=== PATIENT | female | born 1995 | race Asian ===

== ENCOUNTER 2022-06-19 19:31 | Emergency (ER) | payer OTHER ==
--- NOTE | 2022-06-19 19:57 | ED Psychosocial ---
General Chief Complaint: Psych/Social Disorder Stated Complaint: SUCIDAL IDEATION Nursing Triage Note: Pt states she feels sad and thinks she needs to be on an antidepressant. Pt states she cries a lot and felt suicidal a few days ago but denies suicidal thoughts tonight. Source: patient, family History of Present Illness Date Seen by Provider: Jun 19, 2022 Time Seen by Provider: 19:33 Initial Comments 26-year-old female presenting with complaints of feeling sad and crying a lot. She has been having some suicidal thoughts and had a plan of trying to use a knife to cut herself and . She has had a prior suicide attempt about 4 years ago when she had a miscarriage. She has an appointment in about a month to see mental health but since she was getting worse over the weekend they came to be seen today. The was in the room and the patient states that she feels like she is not loved her appreciated and no one would care if she was not better. She feels at times she needs to disappear. The states that he loves her and is trying to help her but the patient says that he does not care and she becomes tearful. She denies taking any medicines or do anything to harm her self today. Timing/Duration: getting worse Severity: severe Associated Symptoms: impaired concentration, suicidal ideation Allergies and Home Medications Allergies Coded Allergies: No Known Drug Allergies (Unverified , 06/19/22) Patient Home Medication List Home Medication List Reviewed: Yes Sulfamethoxazole/Trimethoprim (Bactrim Ds Tablet) 1 Each Tablet, 1 EACH PO BID Prescribed by: MARCO A BENJAMIN on 06/19/22 8220 Review of Systems Constitutional: No chills, No fever EENTM: no symptoms reported Respiratory: no symptoms reported Cardiovascular: no symptoms reported Gastrointestinal: no symptoms reported Genitourinary: no symptoms reported Musculoskeletal: no symptoms reported Skin: no symptoms reported Psychiatric/Neurological: Anxiety, Depressed, Emotional Problems Past Vvhdrui-Fqzwdu-Lsksyr Hx Patient Social History Tobacco Use?: No Use of E-Cig and/or Vaping dev: No Substance use?: No Alcohol Use?: No Past Medical History Surgery/Hospitalization HX: Suicide attempt in 2018 after miscarriage, depression and anxiety Physical Exam Vital Signs - First Documented 06/19/22 19:36 Temp 36.6 Pulse 93 Resp 18 B/P (MAP) 135/85 (102) Pulse Ox 99 O2 Delivery Room Air Capillary Refill : Less Than 3 Seconds Height, Weight, BMI Height: '" Weight: lbs. oz. kg; BMI Method: General Appearance: WD/WN, other (Tearful and crying at times) HEENT: PERRL/EOMI, normal ENT inspection, pharynx normal Neck: non-tender, full range of motion, supple, normal inspection Respiratory: chest non-tender, lungs clear, normal breath sounds, no respiratory distress, no accessory muscle use Cardiovascular: normal peripheral pulses, regular rate, rhythm Gastrointestinal: normal bowel sounds, non tender, soft, no pulsatile mass Extremities: normal range of motion, non-tender, normal capillary refill Neurologic/Psychiatric: schedule maker II-XII nml as tested, no motor/sensory deficits, alert, oriented x 3, depressed affect Appearance/Memory: appropriate appearance, appropriate insight, neat Behavior/Eye Contact: cooperative, good eye contact Skin: normal color, warm/dry Progress/Results/Core Measures Results/Orders Lab Results Laboratory Tests Test 06/19/22 19:48 06/19/22 19:57 Range/Units Urine Color YELLOW Urine Clarity SL CLOUDY Urine pH 6.5 5-9 Urine Specific [place] 1.025 H 1.016-1.022 Urine Protein NEGATIVE NEGATIVE Urine Glucose (UA) NEGATIVE NEGATIVE Urine Ketones NEGATIVE NEGATIVE Urine Nitrite NEGATIVE NEGATIVE Urine Bilirubin NEGATIVE NEGATIVE Urine Urobilinogen 0.2 < = 1.0 MG/DL Urine Leukocyte Esterase 2+ H NEGATIVE Urine RBC (Auto) 2+ H NEGATIVE Urine RBC 0-2 /HPF Urine WBC 10-25 H /HPF Urine Squamous Epithelial Cells 2-5 /HPF Urine Crystals NONE /LPF Urine Bacteria FEW H /HPF Urine Casts NONE /LPF Urine Mucus NEGATIVE /LPF Urine Culture Indicated YES Urine Test NEGATIVE NEGATIVE Urine Opiates Screen NEGATIVE NEGATIVE Urine Oxycodone Screen NEGATIVE NEGATIVE Urine Methadone Screen NEGATIVE NEGATIVE Urine Propoxyphene Screen NEGATIVE NEGATIVE Urine Barbiturates Screen NEGATIVE NEGATIVE Ur Tricyclic Antidepressants Screen NEGATIVE NEGATIVE Urine Phencyclidine Screen NEGATIVE NEGATIVE Urine Amphetamines Screen NEGATIVE NEGATIVE Urine Methamphetamines Screen NEGATIVE NEGATIVE Urine Benzodiazepines Screen NEGATIVE NEGATIVE Urine Cocaine Screen NEGATIVE NEGATIVE Urine Cannabinoids Screen NEGATIVE NEGATIVE White Blood Count 6.6 4.3-11.0 10^3/uL Red Blood Count 4.58 3.80-5.11 10^6/uL Hemoglobin 14.2 11.5-16.0 g/dL Hematocrit 41 35-52 % Mean Corpuscular Volume 90 80-99 fL Mean Corpuscular Hemoglobin 31 25-34 pg Mean Corpuscular Hemoglobin Concent 34 32-36 g/dL Red Cell Distribution Width 11.9 10.0-14.5 % Platelet Count 324 130-400 10^3/uL Mean Platelet Volume 10.6 9.0-12.2 fL Immature Granulocyte % (Auto) 0 % Neutrophils (%) (Auto) 69 42-75 % Lymphocytes (%) (Auto) 25 12-44 % Monocytes (%) (Auto) 5 0-12 % Eosinophils (%) (Auto) 1 0-10 % Basophils (%) (Auto) 1 0-10 % Neutrophils # (Auto) 4.5 1.8-7.8 10^3/uL Lymphocytes # (Auto) 1.7 1.0-4.0 10^3/uL Monocytes # (Auto) 0.3 0.0-1.0 10^3/uL Eosinophils # (Auto) 0.0 0.0-0.3 10^3/uL Basophils # (Auto) 0.1 0.0-0.1 10^3/uL Immature Granulocyte # (Auto) 0.0 0.0-0.1 10^3/uL Sodium Level 139 135-145 MMOL/L Potassium Level 3.9 3.6-5.0 MMOL/L Chloride Level 101 98-107 MMOL/L Carbon Dioxide Level 26 21-32 MMOL/L Anion Gap 12 5-14 MMOL/L Blood Urea Nitrogen 13 7-18 MG/DL Creatinine 0.56 L 0.60-1.30 MG/DL Estimat Glomerular Filtration Rate 130 BUN/Creatinine Ratio 23 Glucose Level 97 70-105 MG/DL Calcium Level 9.1 8.5-10.1 MG/DL Corrected Calcium 8.5-10.1 MG/DL Total Bilirubin 0.4 0.1-1.0 MG/DL Aspartate Amino Transf (AST/SGOT) 16 5-34 U/L Alanine Aminotransferase (ALT/SGPT) 28 0-55 U/L Alkaline Phosphatase 56 40-136 U/L Total Protein 8.0 6.4-8.2 GM/DL Albumin 4.8 H 3.2-4.5 GM/DL Salicylates Level < 0.3 L 5.0-20.0 MG/DL Acetaminophen Level < 10 L 10-30 UG/ML Serum Alcohol < 10 <10 MG/DL SARS-CoV-2 RNA (RT-PCR) Not Detected Not Detecte My Orders Orders - MARCO A BENJAMIN MD Ua Culture If Indicated (06/19/22 19:42) Cbc With Automated Diff (06/19/22 19:42) Comprehensive Metabolic Panel (06/19/22 19:42) Alcohol (06/19/22 19:42) Drug Screen Stat (Urine) (06/19/22 19:42) Acetaminophen (06/19/22 19:42) Salicylate (06/19/22 19:42) Ekg Tracing (06/19/22 19:42) Bh Status Checks/Observation O Q15M (06/19/22 19:42) Covid 19 Inhouse Test (06/19/22 19:42) Hcg,Qualitative Urine (06/19/22 20:19) Urine Culture (06/19/22 19:48) Sulfamethoxazole/Trimet Ds Tab (Bactrim (06/19/22 21:09) Vital Signs/I&O 06/19/22 06/20/22 19:36 00:19 Temp 36.6 36.6 Pulse 93 93 Resp 18 18 B/P (MAP) 135/85 (102) 135/85 Pulse Ox 99 99 O2 Delivery Room Air Room Air Blood Pressure Mean: 102 Progress Progress Note #1: Progress Note Obtain labs to medically screen the patient. Once she is medically clear and stable will contact [facility] to have a mental health screening. In the meantime her is in the room for constant one-to-one and she is on every 15 minute watch for suicide precautions Progress Note #2: Time: 20:44 Progress Note Labs are stable without acute significant normality on CBC or chemistry. Her alcohol, acetaminophen, salicylate and urine drug screen are all negative. She does have some leukocyte esterase and white blood cells with bacteria in her urine to indicate possible UTI. We will start her on antibiotic and she is medically clear and stable to speak with mental health. Progress Note #3: Time: 00:14 Progress Note After speaking with mental health she was cleared to go home with and a safety plan. Safety plan to be faxed by [facility]. Initial ECG Impression Date: Jun 19, 2022 Initial ECG Impression Time: 19:54 Initial ECG Rate: 76 Initial ECG Rhythm: Normal Sinus Initial ECG Comparisson: No Previous ECG Available Comment Normal sinus rhythm with a heart rate of 76 bpm. DC interval [address] elevation. No prior tracing for comparison. QT interval 373 ms with a QTC interval 404 ms. Departure Impression Primary Impression: Suicidal ideation Additional Impressions: Marital or partner relational problem Acute cystitis without hematuria Disposition: HOME, SELF-CARE Condition: Stable Departure-Patient Inst. Decision time for Depature: 00:17 Referrals: NO,LOCAL PHYSICIAN (PCP/Family) Primary Care Physician Patient Instructions: Urinary Tract Infection, Adult ED, Depression, Adult ED, Suicide Prevention, Tips on Positive Thinking Add. Discharge Instructions: Stay well hydrated and drink plenty of water and cranberry juice to help flush out urine infection. Follow safety plan as set up with [facility] Mental Health provider. Take full course of antibiotics to treat for urinary tract infection. All discharge instructions reviewed with patient and/or family. Voiced understanding. Scripts Sulfamethoxazole/Trimethoprim (Bactrim Ds Tablet) 1 Each Tablet 1 EACH PO BID for UTI for 5 Days, #10 TAB 0 Refills Prov: MARCO A BENJAMIN MD 06/19/22 MARCO A BENJAMIN MD Jun 19, 2022 19:57
[2022-06-19 20:08] LABS: BASOPHILS # (AUTO) 0.1 10^3/uL (0.0-0.1); BASOPHILS % (AUTO) 1 % (0-10); EOSINOPHILS % (AUTO) 1 % (0-10); HEMATOCRIT 41 % (35-52); HEMOGLOBIN 14.2 g/dL (11.5-16.0); LYMPHOCYTES # (AUTO) 1.7 10^3/uL (1.0-4.0); LYMPHOCYTES % (AUTO) 25 % (12-44); MEAN CORPUSCULAR HEMOGLOBIN 31 pg (25-34); MEAN CORPUSCULAR HGB CONC 34 g/dL (32-36); MEAN CORPUSCULAR VOLUME 90 fL (80-99); MEAN PLATELET VOLUME 10.6 fL (9.0-12.2); MONOCYTES # (AUTO) 0.3 10^3/uL (0.0-1.0); MONOCYTES % (AUTO) 5 % (0-12); NEUTROPHILS # (AUTO) 4.5 10^3/uL (1.8-7.8); NEUTROPHILS % (AUTO) 69 % (42-75); PLATELET COUNT 324 10^3/uL (130-400); WHITE BLOOD COUNT 6.6 10^3/uL (4.3-11.0)
[2022-06-19 20:13] LABS: BILIRUBIN,URINE NEGATIVE (NEGATIVE); CLARITY,URINE SL CLOUDY; COLOR,URINE YELLOW; GLUCOSE, URINE (UA) NEGATIVE (NEGATIVE); KETONES,URINE NEGATIVE (NEGATIVE); LEUKOCYTE ESTERASE ,URINE 2+ (NEGATIVE); NITRITE,URINE NEGATIVE (NEGATIVE); PH,URINE 6.5 (5-9); PROTEIN,URINE NEGATIVE (NEGATIVE)
[2022-06-19 20:24] LABS: AMPHETAMINE SCREEN, URINE NEGATIVE (NEGATIVE); BARBITURATE SCREEN URINE NEGATIVE (NEGATIVE); BENZODIAZEPINES SCREEN URINE NEGATIVE (NEGATIVE); CANNABINOID SCREEN, URINE NEGATIVE (NEGATIVE); COCAINE SCREEN URINE NEGATIVE (NEGATIVE); METHADONE STAT NEGATIVE (NEGATIVE); OPIATE SCREEN URINE NEGATIVE (NEGATIVE); OXYCODONE STAT NEGATIVE (NEGATIVE); PROPOXYPHENE STAT NEGATIVE (NEGATIVE); TRICYCLIC ANTIDEPRESSANTS SCRE NEGATIVE (NEGATIVE)
[2022-06-19 20:25] LABS: BACTERIA,URINE FEW /HPF; RBC,URINE 0-2 /HPF
[2022-06-19 20:33] LABS: CHLORIDE 101 MMOL/L (98-107); POTASSIUM 3.9 MMOL/L (3.6-5.0); SODIUM 139 MMOL/L (135-145)
[2022-06-19 20:34] LABS: ACETAMINOPHEN < 10 UG/ML (10-30); ALANINE AMINOTRANSFERASE 28 U/L (0-55); ALBUMIN 4.8 GM/DL (3.2-4.5); ALKALINE PHOSPHATASE 56 U/L (40-136); BILIRUBIN,TOTAL 0.4 MG/DL (0.1-1.0); BUN/CREATININE RATIO 23; CALCIUM 9.1 MG/DL (8.5-10.1); CARBON DIOXIDE 26 MMOL/L (21-32); CREATININE SERUM 0.56 MG/DL (0.60-1.30); GFR ESTIMATED 130; GLUCOSE 97 MG/DL (70-105); SALICYLATE < 0.3 MG/DL (5.0-20.0)
[2022-06-19] MEDS ORDERED: TRIM/SULFAMETH 160/800 (SEPTRA DS) TAB PO STA (21:09)
[2022-06-19] MEDS ORDERED: SULF1TAB38 PO (22:05)
[2022-06-20 00:19] VITALS: BP 135/85
== END 2022-06-20 01:15 | disposition home or self-care (01) ==
LOC: ER FS 19:33
DX: R45.851 Suicidal ideations (principal); N30.00 Acute cystitis without hematuria; Z63.0 Problems in relationship with spouse or partner; Z20.822 Contact with and (suspected) exposure to COVID-19; Z28.310 Unvaccinated for COVID-19
CPT/HCPCS: 36415; 80053; 80306; 80320; 80329; 81000; 84703; 85025; 87088; 87636; 93005

== ENCOUNTER 2022-08-25 05:32 | Outpatient (CLI) | payer OTHER ==
[~2022-08-25] VITALS: Ht 149.9 cm; Wt 60.0 kg
[~2022-08-25 05:32] MED LIST: SULF1TAB38 PO
[2022-08-25] MEDS ORDERED: SERT-413 PO (07:23)
== END 2022-08-25 07:26 ==
LOC: PREOP 05:32
PROVIDERS: ATTEND Surgery
DX: Z01.818 Encounter for other preprocedural examination (principal)

== ENCOUNTER 2022-08-28 10:06 | Day surgery (SDC) | payer OTHER ==
[~2022-08-28] VITALS: Ht 149.9 cm; Wt 60.0 kg
[~2022-08-28 10:06] MED LIST changes: +SERT-413 PO
[2022-08-28] MEDS ORDERED: LACTATED RINGERS 1,000 ML IV STA (10:14)
[2022-08-28] MEDS ORDERED: HURRICAINE EXT TUBE (BENZOCAINE) XX PRN (10:15)
[2022-08-28 10:25] VITALS: BP 114/69
[2022-08-28] MEDS ORDERED: LACTATED RINGERS 1,000 ML IV ONE (10:26)
[2022-08-28] MEDS ORDERED: HURRICAINE EXT TUBE (BENZOCAINE) ONE (10:27)
--- NOTE | 2022-08-28 10:42 | Progress Note-Pre Operative ---
Pre-Operative Progress Note Date of Available H&P: Aug 24, 2022 Date H&P Reviewed: Aug 28, 2022 Time H&P Reviewed: 10:41 History & Physical: H&P Reviewed, Patient Examed, No changes noted Pre-Operative Diagnosis: N/V, weight loss, GERD PARKER ISABEL DO Aug 28, 2022 10:42
[2022-08-28] MEDS ORDERED: MIDAZOLAM 2 MG/2 ML (VERSED) VIAL ONE (10:57)
[2022-08-28] MEDS ORDERED: proPOfol 200 MG/20 ML (DIPRIVAN) VIAL IV ONE (10:57)
[2022-08-28 11:20] VITALS: BP 121/59
--- NOTE | 2022-08-28 11:20 | Progress Note-Post Operative ---
Post-Operative Progess Note Surgeon (s)/Supervisor [place] (s) Surgeon PARKER ISABEL DO Supervisor [place]: none Pre-Operative Diagnosis N/V, weight loss, GERD Post-Operative Diagnosis Gastritis Hiatal hernia Esophagitis Procedure & Operative Findings Date of Procedure 08/28/22 Procedure Performed/Findings EGD with biopsy PROCEDURE NOTE: After informed consent was obtained, the patient was brought to the endoscopy suite, placed in bed in left lateral decubitus position. She was administered IV sedation by the KIER OPERATOR who then monitored vitals the entire time, heart rate, blood pressure and pulse ox and the scope was inserted down the mouth through the esophagus into the stomach. On the way down, noted some mild esophagitis, took a picture, pushed into the stomach, pushed past the antrum into the duodenum. Duodenum looked good but the antrum looked mildly inflamed. Pulled back and did a biopsy of antrum, then did a biopsy of the body and finally retroflexed the scope. I saw a small hiatal hernia, took a picture of this and then pulled the scope into the GE junction, took another picture of the GE junction and then did two biopsies. Pushed the scope back into the stomach, suctioned all the air out of the stomach. At this point pulled the scope up the esophagus and out of the mouth. The patient tolerated the procedure, and she recovered in endoscopy suite. Anesthesia Type IV sedation by KIER OPERATOR Estimated Blood Loss Estimated blood loss (mL): scant Specimens/Packing Specimens Removed antral bx body of stomach bx GE jxn bx PARKER ISABEL DO Aug 28, 2022 11:20
--- NOTE | 2022-08-28 11:21 | Endoscopy Discharge Instruct ---
Endo Procedure/Findings Findings 1.: Gastritis 2.: Hiatal Hernia 3.: Other Findings (esophagitis) Discharge Instructions - Activity: You might feel a little sleepy until tomorrow. This is due to the medicine you received to relax you. Until tomorrow, you should: NOT drive a car, operate machinery or power tools. NOT drink any alcoholic beverages. NOT make any important decisions or sign importortant papers. Do not return to work until tomorrow, unless otherwise instructed. Resume previous activities tomorrow. Diet: Start by taking liquids. If you tolerate liquids, advance to solid food. 1.: EGD in 3 years Notify Physician - If you experience excessive bleeding, unusual abdominal pain, fever, or chest pain, contact your doctor immediately. PARKER ISABEL DO Aug 28, 2022 11:21
[2022-08-28 11:25] VITALS: BP 120/61
--- NOTE | 2022-08-28 11:41 | Anesthesia-General Post-Op ---
MAC Patient Condition Mental Status/LOC: Same as Preop Cardiovascular: Satisfactory Nausea/Vomiting: Absent Respiratory: Satisfactory Pain: Controlled Complications: Absent Post Op Complications Complications None Follow Up Care/Instructions Patient Instructions None needed. Anesthesiology Discharge Order Discharge Order Patient is doing well, no complaints, stable vital signs, no apparent adverse anesthesia problems. No complications reported per nursing. DON COLE CRNA Aug 28, 2022 11:41
[2022-08-28 11:50] VITALS: BP 125/88
[2022-08-28 11:55] VITALS: BP 125/88
== END 2022-08-28 11:55 | disposition home or self-care (01) ==
LOC: ENDO 10:06
PROVIDERS: ATTEND Surgery
DX: K29.50 Unspecified chronic gastritis without bleeding (principal); K44.9 Diaphragmatic hernia without obstruction or gangrene; K21.00 Gastro-esophageal reflux disease with esophagitis, without bleeding
CPT/HCPCS: 84703